=== PATIENT | male | born 1970 | race Caucasian/White ===

== ENCOUNTER 2020-06-15 12:03 | Emergency (ER) | payer OTHER ==
[~2020-06-15] VITALS: Ht 177.8 cm; Wt 86.4 kg
[2020-06-15] MEDS ORDERED: PLEASE ENTER ALLERGIES MC SCH (13:30)
[2020-06-15] MEDS ORDERED: CEFAZOLIN PMX 1GM/50ML 50 ML IV ONE (13:30)
[2020-06-15] MEDS ORDERED: DIPH,PERTUSS(ACELL),TET VAC/PF 0.5 ML IM-VACC ONE ×2 (13:30→13:40)
[2020-06-15] MEDS ORDERED: CEFAZOLIN PMX 1GM/50ML 50 ML ONE (13:39)
[2020-06-15] MEDS ORDERED: FENTANYL PF 250 MCG/5ML ONE (14:44)
[2020-06-15] MEDS ORDERED: PROPOFOL 50 ML ONE (14:44)
[2020-06-15] MEDS ORDERED: MIDAZOLAM 1 MG/ML, 2ML ONE (14:44)
[2020-06-15] MEDS ORDERED: DEXAMETHASONE 4 MG/ML, 1ML ONE (14:49)
[2020-06-15] MEDS ORDERED: PROPOFOL 10 MG/ML, 20ML ONE (14:49)
[2020-06-15] MEDS ORDERED: ONDANSETRON 2MG/ML, 2ML ONE (14:49)
--- NOTE | 2020-06-15 14:52 | NUR ---
REPORT TO MOLDER SETTER.
[2020-06-15] MEDS ORDERED: morphine SULFATE 10 MG/ML, 1ML IVPush PRN (15:00)
[2020-06-15] MEDS ORDERED: CEFTRIAXONE PMX 2GM/50ML 50 ML IV SCH (15:00)
[2020-06-15] MEDS ORDERED: CHLORHEXIDINE 15 ML UDC MM ONE (15:00)
[2020-06-15] MEDS ORDERED: METOCLOPRAMIDE 5 MG/ML, 2ML IVPush PRN (15:00)
[2020-06-15] MEDS ORDERED: ONDANSETRON 2MG/ML, 2ML IVPush PRN (15:00)
[2020-06-15] MEDS ORDERED: PROMETHAZINE 25 MG/ML, 1ML IM PRN (15:00)
[2020-06-15] MEDS ORDERED: VANCOMYCIN PER PHARMACY MC PRN (15:30)
[2020-06-15] MEDS ORDERED: SODIUM CHLORIDE 0.9% 1,000 ML IV SCH (15:55)
[2020-06-15 16:12] VITALS: BP 136/76
--- NOTE | 2020-06-15 16:13 | NUR ---
PT SEEN IN [facility] BY ORTHO. DECISION TO TRANSFER TO [facility] FOR SURGERY AND FURTHER CARE. PT BACK TO ED FOR TRANSFER. NO CHANGE IN PT CONDITION.
[2020-06-15] MEDS ORDERED: MORPHINE SULFATE 4 MG/ML, 1ML ONE (16:52)
== END 2020-06-15 14:04 ==
LOC: ED 14:04 → SUATTDRO 14:54 → UNDOADMIN 14:55 → EDIP 14:55
PROVIDERS: ATTEND Internal Medicine
DX: S42.401B Unspecified fracture of lower end of right humerus, initial encounter for open fracture (principal); Z20.818 Contact with and (suspected) exposure to other bacterial communicable diseases; W19.XXXA Unspecified fall, initial encounter; Y93.89 Activity, other specified; Y92.89 Other specified places as the place of occurrence of the external cause; Y99.8 Other external cause status
CPT/HCPCS: 36415; 71045; 73060; 80307; 87635; 90471; 90715; 96365; 96375; 99284; J0690; J1100; J2250; J2270; J2405; J2704; J3010